=== PATIENT | male | born 1980 | race Caucasian/White ===

== ENCOUNTER 2021-09-14 22:16 | Emergency (ER) | payer MEDICAID ==
[~2021-09-14] VITALS: Ht 185.4 cm; Wt 86.2 kg
[2021-09-14 22:35] VITALS: BP_SYST 114; BP_SYST 150; BP_DIAS 104; BP_DIAS 64
--- NOTE | 2021-09-14 22:40 | NUR ---
PATIENT TO [facility] AMBULATORY
--- NOTE | 2021-09-14 23:28 | NUR ---
PT AMBULATED TO BED 07.
[2021-09-14] MEDS ORDERED: HYDR-1093 PO (23:38)
--- NOTE | 2021-09-14 23:55 | NUR ---
Patient discharged with v/s stable. Written and verbal after care instructions given and explained. Patient alert, oriented and verbalized understanding of instructions. Ambulatory with steady gait. All questions addressed prior to discharge. ID band removed. Patient advised to follow up with PMD. Rx of HYDROXYZINE given. Patient educated on indication of medication including possible reaction and side effects. Opportunity to ask questions provided and answered.
--- NOTE | 2021-09-15 00:39 | NUR ---
The patient's care was reviewed and supervised by BIA CADENA RN.
--- NOTE | 2021-09-15 00:39 | NUR ---
The patient's care was reviewed and supervised by BIA CADENA RN.
== END 2021-09-14 23:55 | disposition home or self-care (01) ==
LOC: MED 22:16
DX: J02.9 Acute pharyngitis, unspecified (principal); F31.9 Bipolar disorder, unspecified; Z79.899 Other long term (current) drug therapy
CPT/HCPCS: 93005; 99283